=== PATIENT | male | born 1960 | race Caucasian/White ===

== ENCOUNTER → 2020-02-24 08:56 | Outpatient (BNVA) | payer OTHER, SELFPAY | PROVIDERS: Family Provider Family Medicine; Visit Provider Surgery | DX: Z11.59 Encounter for screening for other viral diseases (principal) | CPT/HCPCS: 87635 ==

== ENCOUNTER 2020-02-27 08:10 | Day surgery (SDC) | payer OTHER, SELFPAY ==
[2020-02-26 09:39] VITALS: BMI 21.9
[2020-02-27 08:45] VITALS: BP 150/92; PULSE 62; RESP 16; TEMP 36.6; O2SAT 99
[2020-02-27] MEDS: sodium chloride 0.9% 1,000 ML 30 ML IV (09:00)
--- NOTE | 2020-02-27 09:15 | W.PM.OPSUD ---
Surgery/Procedure H&P Update DATE OF PROCEDURE: February 27, 2020 DATE H&P PERFORMED: 02/04/20 H&P UPDATE INFORMATION: No changes to prior documentation PLANNED PROCEDURE: Operation Date: 02/27/20 11:40 Proposed Procedures p Right Inguinal Hernia Repair w/ Mesh(Right) - Malcolm Flood MD
--- NOTE | 2020-02-27 09:35 | ANES.PREANE2 ---
Pre-Anesthetic Assessment Pre-Anesthetic Assessment: Height/Weight: Height 1.7 m Weight 63.503 kg Temp Pulse Resp BP Pulse Ox 98 F 62 16 150/92 99 02/27/20 08:45 02/27/20 08:45 02/27/20 08:45 02/27/20 08:45 02/27/20 08:45 Preop Diagnosis: inguinal hernia Proposed Procedure: Operation Date: 02/27/20 11:40 Proposed Procedures p Right Inguinal Hernia Repair w/ Mesh(Right) - Malcolm Flood MD Familial anesthetic complications: None Was Beta Shiloh taken within 24 hours: N/A Last intake: Intake Last Liquid Date 02/26/20 Last Liquid Time 22:00 Last Solid Date 02/26/20 Last Solid Time 20:00 Social: Social History: No alcohol and No tobacco Exam: Pre-Anes Outpt Exam: alert, oriented x 3, clear to auscultation bilaterally and regular rate & rhythm Airway: Cervical ROM: WNL MP: 2 Dentition: Full CV/HEM: CV/HEM: HTN Anesthetic Plan: ASA status: 1 Anesthesia: MAC Risk of > 500 ml blood loss (7ml/kg in children): No Meds/Allergies Current Medications: Current Medications Generic Name Dose Route Start Last Admin Trade Name Freq PRN Reason Stop Dose Admin Sodium Chloride 1,000 mls @ 30 ml s/hr 02/27/20 08:30 02/27/20 09:00 Sodium Chloride 0.9% IV 02/28/20 08:29 30 mls/hr .Q24H NAVARRO Administration Data Anesthesia Cardiac Studies: No Data to Display
--- NOTE | 2020-02-27 10:13 | PM.OP ---
Operative Report Date of procedure: February 27, 2020 Pre-op Diagnosis: Right inguinal hernia. Post-op Diagnosis: Right direct inguinal hernia. Procedure Done: Repair of right inguinal hernia with mesh. Pathology: none sent Surgeon: Malcolm Flood Anesthesia: MAC Estimated blood loss (mL): 5 Complications: None. Condition: stable Disposition: same day Procedure: The patient was brought to the operating room and was placed in a supine position on the operating room table. A monitored anesthetic was induced. The [] inguinal region was prepped and draped in a sterile fashion. A combination of 1% lidocaine with 1:100,000 parts epinephrine and 0.5% bupivacaine was used for local anesthesia throughout the procedure. A transverse incision was carried out above the level of the pubic tubercle. Cautery was used to divide the subcutaneous tissue down to the external oblique aponeurosis, which was incised in parallel with its fibers over the inguinal canal. The spermatic cord was looped with a Sumit drain. The ilioinguinal nerve was preserved throughout the procedure. The patient was found to have a direct hernia defect in the floor of the inguinal canal. The defect was small, measuring perhaps 1.5 cm in diameter medially in the canal. The herniated contents were freed from the surrounding subcutaneous tissue and were then reduced. A small mesh plug was used to hold the herniated tissue in a reduced position and the plug was secured using multiple sutures of 0 Prolene that were used to connect the conjoined area medially to the reflecting edge of Poupart's ligament laterally. The onlay patch was anchored at the tubercle with a suture of O Prolene and was laid along the new inguinal canal floor, allowing the cord structures to pass through the precut hole in the mesh. The 2 wings of the mesh were sewn to each other above the level of the internal ring with a suture of 0 Prolene. The external oblique aponeurosis was closed over the top of the cord using a running suture of 3-0 Vicryl. The wound was irrigated. The subcutaneous tissue was brought together with a simple suture of 3-0 Vicryl and the skin was approximated using a running subcuticular suture of 3-0 Vicryl. Benzoin and Steri-Strips were placed over the incision and a sterile bandage followed. The patient was taken to the recovery area in stable condition postoperatively.
[2020-02-27 10:20] VITALS: BP 91/50; PULSE 59; RESP 16; TEMP 36.1; O2SAT 97
[2020-02-27 10:35] VITALS: BP 97/61; PULSE 53; RESP 16; TEMP 36.6; O2SAT 99
--- NOTE | 2020-02-27 11:18 | ANE.PACU2 ---
Inpatient post-anesthesia follow up: Airway intact: Yes Vital signs: Temperature 98 F Pulse Rate 53 Respiratory Rate 16 Blood Pressure 97/61 Pulse Oximetry 99 Oxygen Delivery Me thod Room Air Oxygen Flow Rate Fraction of Inspir ed Oxygen Hydration adequate: Yes Nausea and vomiting: No Pain level: 1 Mental status: Baseline
== END 2020-02-27 11:30 | disposition home or self-care (01) ==
PROVIDERS: PCP Nurse Practitioner Family; Visit Provider Surgery
PROC: (CPT 49505; principal; 2020-02-27 10:00)
DX: K40.90 Unilateral inguinal hernia, without obstruction or gangrene, not specified as recurrent (principal); I10 Essential (primary) hypertension; M19.90 Unspecified osteoarthritis, unspecified site
CPT/HCPCS: 49505; 12345; J0690; J2704; J3010; J3490; J7030

== ENCOUNTER → 2022-11-28 11:03 | Outpatient (BNVA) | payer OTHER, SELFPAY | PROVIDERS: PCP Nurse Practitioner Family; Referring Provider Emergency Medicine; Visit Provider Student in an Organized Health Care Education/Training Program | DX: S61.012A Laceration without foreign body of left thumb without damage to nail, initial encounter (principal); S69.92XA Unspecified injury of left wrist, hand and finger(s), initial encounter; X58.XXXA Exposure to other specified factors, initial encounter | CPT/HCPCS: 73130 ==

== ENCOUNTER 2023-05-06 12:00 | Emergency (ER) | payer MEDICARE, OTHER, SELFPAY ==
[2023-05-06] VITALS (17 sets, daily range): BP systolic 184–195; BP diastolic 103–116; PULSE 70–89; RESP 11–24; TEMP 36.6; O2SAT 97–100
--- NOTE | 2023-05-06 13:24 | ED_ITS ---
HPI - Back Pain/Injury 2 General: Chief Complaint: Back Pain/Injury Stated Complaint: discomfort in upper back Time Seen by Provider: 05/06/23 13:17 Source: patient Mode of arrival: ambulatory Limitations: no limitations History of Present Illness: Patient presents emergency department today for evaluation treatment of back pain between his shoulders and an episode of dizziness, nausea, presyncope, tingling on the top of his head and diaphoresis. Patient states that he has chronic back issues and regularly gets adjusted but, states he had a sudden discomfort between his shoulder blades today while at [facility] which was accompanied by his other symptoms. Patient presents with elevated blood pressure readings. Patient states that he often has elevated blood pressure readings stating that even back several years he has had high blood pressure. It sounds like his primary care doctor had tried him on lisinopril but the patient did not like the medication so he did not take it. They attempted to try another medication but again, patient was noncompliant and did not take medication. He states he purchases supplements [id number] and online which controlled his blood pressure. He states that he has been told he has arterial blockage in his heart but then he had a bedside ultrasound once where he had a normal EKG and a normal ultrasound on his heart and they said that his arteries had cleared . Review of Systems 2 General: Reports: 10 or more systems reviewed and unremarkable except in HPI and below Physical Exam 2 Const: COMMON NORMALS: no acute distress, patient oriented x3 and alert HENMT: OTHER: Mucous membranes are moist. Eye: COMMON NORMALS: Equal, round and reactive pupils present, EOMs intact bilaterally and conjunctivae normal CONJUNCTIVA: Yes conjunctivae normal P UPIL: Yes Equal, round and reactive pupils present Neck/C-Spine: COMMON NORMALS: no meningeal signs and no JVD Lymph: LYMPHATIC: no lymphadenopathy noted Resp: COMMON NORMALS: normal respiratory effort, No retractions and No use of accessory muscles Cardio: COMMON NORMALS: no JVD, regular rate and regular rhythm RATE: r egular rate RHYTHM: regular rhythm GI: OTHER: Abdomen soft. Nontender. : COMMON NORMALS: Yes no CVA tenderness BLADDER/KIDNEY EXAM: Yes no CVA tenderness Back/Pelvis: COMMON NORMALS: no CVA tenderness, thoracic and lumbar spine normal to inspection and thoraco-lumbar ROM normal Extremity: COMMON NORMALS: normal to inspection, full ROM and no pedal edema Neuro: COMMON NORMALS: patient oriented x3 SENSORIUM/ORIENTATION: Yes alert MENINGEAL SIGNS: Yes no meningeal signs CRANIAL NERVES: Yes CN normal except as noted SPEECH: speech normal GAIT: Yes Normal gait present Skin: COMMON NORMALS: no rashes or lesions noted and turgor normal GENERAL SKIN EXAM: no rashes or lesions noted and turgor normal Course 2 Vital Signs: Vital signs: Vital Signs Temperature 97.8 F 05/06/23 12:32 Pulse Rate 80 05/06/23 14:40 Respiratory Rate 18 05/06/23 14:40 Blood Pressure 189/116 05/06/23 15:19 Pulse Oximetry 98 05/06/23 14:40 Oxygen Delivery Me thod Room Air 05/06/23 12:32 MDM - Back Pain/Injury Medical Decision Making Evaluation the patient is somewhat difficult as he is aversive to certain therapies and interventions. Due to his presenting symptoms, I did speak with Dr. Catalan who agrees patient should be provided aspirin. Aspirin was ordered and I discussed this medication with the patient. However, when the nurse went to go provide the medication, patient then declined. Initial EKG with second read by Dr. Catalan showed a sinus rhythm of 73 bpm. Baseline troponin was negative. Patient shows no signs of elevated white blood cell count. Patient does have an acute decrease in his GFR without recorded CKD or ERIKA in the past. I do have concerns that he has had hypertension for quite some time and could be causing kidney damage. Patient's blood pressure readings have been quite elevated here in the emergency department with systolic readings anywhere from 180-200 and diastolic readings from 100-120. Discussed with the patient concerns for stroke with high blood pressure. I spent greater than 30 minutes at bedside trying to discussed with the patient the importance of blood pressure control. Patient goes back and forth between his willingness to take medication for blood pressure but basically admits to being noncompliant with any prescriptions as he does not want to take anything he does not think he needs or, if he seems to be having good blood pressure that day, does not want to have to take any medication. He did allow for acute treatment of blood pressure here in the emergency department and we offered to continue monitoring him but, patient chooses to discharge. It was recommended that he keep a log of blood pressure readings at home and contact his primary care provider for follow-up this coming week. However, as this is the holiday, he was given strict return precautions for any return of symptoms similar to the ones he had prior to arrival or, signs of stroke including facial droop, one-sided body weakness, slurred speech. Information regarding blood pressure, strokes, and recommended diet changes for blood pressure were provided to the patient at discharge. Patient verbalized understanding and agreement to treatment plan. Differential Diagnosis Likely thoracic back pain; Unlikely lumbar radiculopathy, sciatica, strain of lumbar region, renal colic, pyelonephritis or discitis Labs 05/06/23 13:40 05/06/23 13:40 Radiology Impressions Chest X-Ray 05/06/23 13:25 IMPRESSION: No acute findings. Laboratory Results WBC 6.68 10^3/uL (3.29-11.43) 05/06/23 13:40 RBC 4.86 10^6/uL (3.85-5.65) 05/06/23 13:40 Hgb 14.20 g/dL (11.27-16.99) 05/06/23 13:40 Hct 41.8 % (37-53) 05/06/23 13:40 MCV 86.0 fl (82-101) 05/06/23 13:40 MCH 29.2 pg (27-33) 05/06/23 13:40 MCHC 34.0 g/dL (30-55) 05/06/23 13:40 RDW 12.7 % (12.1-15.1) 05/06/23 13:40 Plt Count 199 10^3/cmm (157-399) 05/06/23 13:40 MPV 10.0 fL (7.4-10.4) 05/06/23 13:40 Neut % (Auto) 77.3 % 05/06/23 13:40 Lymph % (Auto) 14.4 % 05/06/23 13:40 [place] % (Auto) 7.2 % 05/06/23 13:40 Eos % (Auto) 0.6 % 05/06/23 13:40 Baso % (Auto) 0.4 % 05/06/23 13:40 Neut # (Auto) 5.16 10^3/uL (1.8-7.7) 05/06/23 13:40 Lymph # (Auto) 1.0 10^3/uL (0.8-4.8) 05/06/23 13:40 [place] # (Auto) 0.5 10^3/uL (0.2-0.9) 05/06/23 13:40 Eos # (Auto) 0.0 10^3/uL (0.0-0.8) 05/06/23 13:40 Baso # (Auto) 0.0 10^3/uL (0.0-0.1) 05/06/23 13:40 Nucleated RBC % (auto) 0 % 05/06/23 13:40 Nucleated RBCs # 0.0 /100WBC 05/06/23 13:40 Sodium 133 mmol/L (136-145) L 05/06/23 13:40 Potassium 4.1 mmol/L (3.5-5.1) 05/06/23 13:40 Chloride 100 mmol/L (98-107) 05/06/23 13:40 Carbon Dioxide 22 mmol/L (22-29) 05/06/23 13:40 Anion Gap 15.1 (5-19) 05/06/23 13:40 BUN 19 mg/dL (8-23) 05/06/23 13:40 Creatinine 1.1 mg/dL (0.7-1.2) 05/06/23 13:40 GFR Calculation 67.2 mL/min (90-130) L 05/06/23 13:40 Glucose 100 mg/dL (65-115) 05/06/23 13:40 Calculated Osmolality 278 mOsm/kg (285-295) L 05/06/23 13:40 Calcium 9.6 mg/dL (8.5-10.5) 05/06/23 13:40 Total Bilirubin 0.4 mg/dL (0.15-1.2) 05/06/23 13:40 AST 28 U/L (0-40) 05/06/23 13:40 ALT 30 U/L (0-41) 05/06/23 13:40 Alkaline Phosphatase 48 U/L (40-130) 05/06/23 13:40 Troponin T Baseline 10 ng/L (0-15) 05/06/23 13:40 Total Protein 7.1 g/dL (6.6-8.7) 05/06/23 13:40 Albumin 4.6 g/dL (3.5-5.2) 05/06/23 13:40 Globulin 2.5 g/dL (1.3-4.6) 05/06/23 13:40 Urine Color Yellow (Yellow) 05/06/23 13:16 Urine Appearance Clear (CLEAR) 05/06/23 13:16 Urine pH 6 (5-7) 05/06/23 13:16 Ur Specific [place] 1.015 (1.005-1.030) 05/06/23 13:16 Urine Protein Neg (Negative) 05/06/23 13:16 Urine Glucose (UA) Norm (Normal) 05/06/23 13:16 Urine Ketones 1+ (Negative) H 05/06/23 13:16 Urine Blood Neg (Negative) 05/06/23 13:16 Urine Nitrate Negative (Negative) 05/06/23 13:16 Urine Bilirubin Neg (Negative) 05/06/23 13:16 Urine Urobilinogen Norm mg/dL (Negative) 05/06/23 13:16 Ur Leukocyte Esterase Negative (Negative) 05/06/23 13:16 All radiology interpretation(s) finalized by discharge Discharge Plan Discharge Patient Disposition: Home Clinical Impression: Elevated blood pressure reading, Decreased renal function Condition: Stable Prescriptions: New amlodipine 10 mg tablet 10 mg PO DAILY Qty: 14 0RF Discharge Orders: Discharge ED (Routine); Ordered 05/06/23 Ordered By: Janine Manning Referrals: Bhupendra Boyd Jr, MD [Primary Care Provider] - Patient Instructions: Intracerebral Hemorrhage (DC), Hypertensive Crisis (ED), Hypertension (ED), Stroke (DC), Mediterranean Diet (DC) Activity Restrictions/Additional Instructions: Based on your presenting symptoms including pain between your shoulder blades, dizziness, nausea, and episode of sweating, we were concerned about your heart. Your EKG revealed no current or active heart attack and laboratory enzymes remain stable for concerns of continuous heart muscle injury. Still, your blood pressure has been extremely high while you have been here in the emergency department. You have had systolic readings anywhere from 180s to 200 and diastolic readings from 100-122. You did indicate that you have had issues with high blood pressure for several years and that your doctor had originally put you on some medication for blood pressure though he did not take it. I know you are taking supplements for your blood pressure however, I am concerned that your supplements or not controlling your blood pressure well as your lab work shows decreased kidney function today. As we discussed, elevated blood pressure readings can cause endorgan damage and often causes kidney damage. Acutely, significantly elevated blood pressure readings greatly affect your risk for stroke. Because of the significant elevation your blood pressure today we did provide you a blood pressure medication here to acutely treat your blood pressure but, after speaking with the emergency room physician, agrees that we should provide you some daily blood pressure medication with request for you to monitor and keep a running log of your blood pressure readings at home to discuss with your primary care doctor within the next 1 to 2 weeks. However, if you develop severe headache, returning episodes of either chest pain or back pain with tingling/numbness, dizziness, blurry vision, slurred speech, facial droop, one-sided body weakness, episodes of sweating, fainting, nausea or vomiting you need to be brought back to the emergency department immediately. Coding Level of Care Code ED Peoplesoft Programmer for Alvaro Desir
--- NOTE | 2023-05-06 13:25 | XRR_ITS ---
PROCEDURE INFORMATION: Exam: XR Chest Exam date and time: 05/06/2023 1:32 PM Age: 63 years old Clinical indication: Other: Upper back pain, diaphoresis, nausea, dizziness, tingling with sudden upper TECHNIQUE: Imaging protocol: Radiologic exam of the chest. Views: 1 view. COMPARISON: CR XR chest 1V [id number] 07/25/2018 3:32 PM FINDINGS: Lungs: No consolidation. Oblique interface projecting at the worrr-lnscywc-bdjv-left mid to upper lungs with lung markings extending peripherally in keeping with skin folds. Pleural spaces: Unremarkable. No pleural effusion. No pneumothorax. Heart/Mediastinum: Unremarkable. No cardiomegaly. Bones/joints: Mild degenerative changes along the spine and shoulders. XR/XR chest 1V [id number] IMPRESSION: No acute findings.
--- NOTE | 2023-05-06 13:31 | ECG_ITS ---
[facility] Test Date: 2023-05-06 Pat Name: Franklin Kay Department: Room: Gender: Male [employer] General Supervisor: : 1960 Requested By: Janine Crawford Order Number: [id number] Mo MD: Juan Siegel M.D. Measurements Intervals [place] Rate: 73 P: 71 [place]: 171 QRS: 64 QRSD: 121 T: 54 QT: 382 QTc: 422 Interpretive Statements SINUS RHYTHM POSSIBLE RIGHT VENTRICULAR CONDUCTION DELAY [RSR (QR) IN V1/V2] Compared to ECG 07/25/2018 17:53:27 No significant changes Electronically Signed On 05-06-2023 13:54:45 WATER PIPE INSTALLER by Juan Siegel M.D. [id number]
--- NOTE | 2023-05-06 13:46 | PC.NURSE ---
Janine Manning, GENE and myself both explained the risks and benefits of taking asprin for cardiac patients very thoroughly to the patient. Patient stated that he did not want to take the asprin and wants to refuse taking it.
[2023-05-06 13:52] LABS: Add Urine Microscopic? NO; Charge for UA Resulting for Rev
[2023-05-06 13:57] LABS: Basophils % 0.4 %; Eosinophils % 0.6 %; Hematocrit 41.8 % (37-53); Lymphocytes % 14.4 %; Mean Corpuscular Hemoglobin 29.2 pg (27-33); Monocytes # 0.5 10^3/uL (0.2-0.9); Monocytes % 7.2 %; Neutrophils # 5.16 10^3/uL (1.8-7.7); Neutrophils % 77.3 %; Nucleated Red Blood Cells % 0 %; Platelet Count 199 10^3/cmm (157-399); Red Blood Count 4.86 10^6/uL (3.85-5.65); Red Cell Distribution Width 12.7 % (12.1-15.1); White Blood Count 6.68 10^3/uL (3.29-11.43)
[2023-05-06 14:00] LABS: Bilirubin Urine Neg (Negative); Blood Urine Neg (Negative); Glucose Urine UA Norm (Normal); Ketones Urine 1+ (Negative); Leukocyte Esterase Urine Negative (Negative); Nitrate Urine Negative (Negative); Protein Urine Neg (Negative); Specific Gravity, Urine 1.015 (1.005-1.030); Urine Appearance Clear (CLEAR); Urine Color Yellow (Yellow); Urobilinogen Urine Norm (Negative); pH Urine 6 (5-7)
[2023-05-06 14:17] LABS: Troponin(5th) Baseline 10 ng/L (0-15)
[2023-05-06 14:28] LABS: Alanine Aminotransferase 30 U/L (0-41); Albumin Level 4.6 g/dL (3.5-5.2); Alkaline Phosphatase 48 U/L (40-130); Anion Gap 15.1 (5-19); Aspartate Amino Transferase 28 U/L (0-40); Blood Urea Nitrogen 19 mg/dL (8-23); Calcium 9.6 mg/dL (8.5-10.5); Carbon Dioxide 22 mmol/L (22-29); Chloride 100 mmol/L (98-107); Globulin 2.5 g/dL (1.3-4.6); Glomerular Filtration Rate 67.2 mL/min (90-130); Glucose 100 mg/dL (65-115); Osmolality Calculated 278 mOsm/kg (285-295); Potassium 4.1 mmol/L (3.5-5.1); Sodium 133 mmol/L (136-145); Total Bilirubin 0.4 mg/dL (0.15-1.2); Total Protein 7.1 g/dL (6.6-8.7)
--- NOTE | 2023-05-06 14:46 | PC.NURSE ---
Patient's IV line in his right AC infiltrated we removed the IV line and did not start another IV per patient's insistence. He stated that he would rather not have another IV unless it was absolutely necessary.
[2023-05-06] MEDS: cloNIDine 0.1 mg Tablet PO (15:19)
== END 2023-05-06 15:43 | disposition home or self-care (01) ==
PROVIDERS: Emergency Provider Physician Assistant; PCP Family Medicine
DX: R03.0 Elevated blood-pressure reading, without diagnosis of hypertension (principal); N28.89 Other specified disorders of kidney and ureter
CPT/HCPCS: 71045; 80053; 81003; 84484; 85025; 93005; 99285

== ENCOUNTER 2024-04-09 07:15 | Outpatient (CLI) | payer MEDICARE, OTHER, SELFPAY ==
--- NOTE | 2024-04-09 07:45 | USCV_ITS ---
Franklin Kay Age: 64 Gender: M : 1960 Exam Date: 04/09/2024 07:47 Ordering Phys: Ramirez Menard DO Technologist: Exam Location: [facility] [place] Indication: ai BP: / HR: 65 Rhythm: Sinus Technical Quality: Adequate MEASUREMENTS (Male / Female) Normal Values 2D ECHO LV Diastolic Diameter PLAX 4.5 cm 4.2 - 5.9 / 3.9 - 5.3 cm IVS Diastolic Thickness 0.9 cm 0.6 - 1.0 / 0.6 - 0.9 cm IVS Systolic Thickness 1.2 cm LVPW Diastolic Thickness 0.9 cm 0.6 - 1.0 / 0.6 - 0.9 cm LVPW Systolic Thickness 1.4 cm LVOT Diameter 2.0 cm LV Ejection Fraction 2D Teich 66.0 % LV Ejection Fraction MOD 4C 65.9 % LV Ejection Fraction MOD 2C 69.0 % LV Ejection Fraction 2C AL 71.0 % LA Diameter 2.7 cm RA Systolic Volume 4C AL 33.5 ml RA Systolic Volume 4C MOD 33.1 ml Aorta at Sinotubular Diameter 2.6 cm M-MODE LA Ao Ratio MM 0.7 AV Cusp Separation MM 2.0 cm DOPPLER AV Peak Velocity 290.0 cm/s LVOT Peak Velocity 93.0 cm/s AV Area Cont Eq vti 2.5 cm squared AV Area Cont Eq pk 1.0 cm squared MV Area PHT 3.7 cm squared Mitral E to A Ratio 0.9 TR Peak Velocity 149.0 cm/s TR Peak Gradient 8.9 mmHg TV Peak E Velocity 85.0 cm/s PV Peak Velocity 117.0 cm/s FINDINGS Left Ventricle Normal left ventricular size and systolic function, EF 65%. No regional wall motion abnormalities. Right Ventricle The right ventricle is normal in size and function. Right Atrium The right atrium is normal in size. Left Atrium The left atrium is normal in size. Mitral Valve Mild mitral valve regurgitation. Aortic Valve Mild aortic valve stenosis, mean gradient 2.9 mmHg, LARISA 2.5 cm squared. Trace to mild aortic valve regurgitation. Tricuspid Valve No tricuspid valve regurgitation. Pulmonic Valve Pulmonic valve not well visualized. Pericardium Normal pericardium without effusion. Aorta No evidence of dissection. Normal aortic root IVC The inferior vena cava appears normal. CONCLUSIONS Normal left ventricular size and systolic function, EF 65%. No regional wall motion abnormalities. Mild mitral valve regurgitation. Mild aortic valve stenosis, mean gradient 2.9 mmHg, LARISA 2.5 cm squared. Trace to mild aortic valve regurgitation. No tricuspid valve regurgitation. Estimated pulmonary artery peak systolic pressure possibly within normal limits There is no pericardial effusion. There are no intracardiac masses. Compared to the previous study from 01/28/2019, there may be significant change Dr Karen Zaman MD FAC (Electronically Signed) Final Date: 09 April 2024 17:23 S
== END 2024-04-09 07:16 | disposition home or self-care (01) ==
LOC: RAD 07:20
PROVIDERS: PCP Family Medicine; Visit Provider Family Medicine
DX: R01.1 Cardiac murmur, unspecified (principal); G47.33 Obstructive sleep apnea (adult) (pediatric)
CPT/HCPCS: 93306

== ENCOUNTER 2024-05-30 14:04 | Outpatient (CLI) | payer MEDICARE, OTHER, SELFPAY | END 2024-05-30 14:05 | disposition home or self-care (01) | LOC: SLEEP 14:06 | PROVIDERS: PCP Family Medicine; Visit Provider Family Medicine | DX: G47.33 Obstructive sleep apnea (adult) (pediatric) (principal); R01.1 Cardiac murmur, unspecified; G47.36 Sleep related hypoventilation in conditions classified elsewhere | CPT/HCPCS: G0399 ==

== ENCOUNTER → 2024-07-09 14:02 | Outpatient (BNVA) | payer MEDICARE, OTHER, SELFPAY | PROVIDERS: PCP Family Medicine; Visit Provider Internal Medicine Cardiovascular Disease | DX: R07.9 Chest pain, unspecified (principal) | CPT/HCPCS: 93005 ==

== ENCOUNTER → 2024-08-26 13:21 | Outpatient (BNVA) | payer MEDICARE, OTHER, SELFPAY | PROVIDERS: PCP Family Medicine; Visit Provider Family Medicine | DX: R01.1 Cardiac murmur, unspecified (principal); I35.0 Nonrheumatic aortic (valve) stenosis; I10 Essential (primary) hypertension; H91.93 Unspecified hearing loss, bilateral; N52.9 Male erectile dysfunction, unspecified | CPT/HCPCS: 80053; 80061 ==

== ENCOUNTER 2024-10-11 14:59 | Outpatient (CLI) | payer MEDICARE, OTHER, SELFPAY ==
--- NOTE | 2024-10-11 15:04 | MR_ITS ---
WS: [id number] MRI HEAD WITH CONTRAST WITH ATTENTION TO THE INTERNAL AUDITORY CANALS TECHNIQUE: Sagittal T1, T2 axial, T2 axial flair, axial susceptibility weighted imaging, axial diffusion weighted images, and coronal T2 images were obtained. Pre and post T1 axial and post T1 coronal images. ADC and FSPGR images. Post gadolinium images with attention to the internal auditory canals. Axial fiesta imaging. CLINICAL INFORMATION: MIXED CONDUCTIVE SENSORINEURAL HEARING LOSS, BILATERAL COMPARISON: None. FINDINGS: 2 tiny foci of restricted diffusion in the RIGHT parasagittal parietal lobe posteriorly consistent with small acute to subacute lacunar infarcts. Moderate small vessel changes. Mild to moderate parenchymal volume loss. Chronic lacunar infarcts in the LEFT maldonado radiata. Normal posterior fossa. Few tiny chronic lacunar infarcts RIGHT cerebellum. Normal vascular flow voids at the skull base. No extra-axial fluid collections. Paranasal sinuses and mastoid air cells are well aerated. No hemosiderin on the susceptibility weighted images. Proximal 7th and 8th cranial nerves are normal. Normal trigeminal nerve root entry zones. No evidence of enhancing IAC or CP angle mass. No abnormal intracranial enhancement. Normal dural venous sinuses. MR/MR iac's wo/w con* [id number] IMPRESSION: 1. 2 tiny foci of restricted diffusion within the RIGHT posterior parietal com patible with small acute to early subacute tiny infarcts. 2. Moderate small vessel changes. Mild to moderate parenchymal volume loss. Ev idence of numerous chronic lacunar infarcts in the LEFT maldonado radiata. 3. No evidence of enhancing IAC or CP angle mass. 4. Paranasal sinuses and mastoid air cells are well aerated 5. No hemosiderin on susceptibly weighted images. 6. A few chronic lacunar infarcts in the RIGHT cerebellum.
[2024-10-11] MEDS: gadobenate dimeglumine 20 mL vial 14 ML IV (15:49)
== END 2024-10-11 15:00 | disposition home or self-care (01) ==
LOC: RAD 15:02
PROVIDERS: PCP Family Medicine; Visit Provider Specialist
DX: H90.6 Mixed conductive and sensorineural hearing loss, bilateral (principal); R93.0 Abnormal findings on diagnostic imaging of skull and head, not elsewhere classified
CPT/HCPCS: 70553